=== PATIENT | female | born 1985 | race Caucasian/White ===

== ENCOUNTER → 2020-06-28 | Outpatient (CLI) | payer BC, OTHER ==
[~2020-06-28] MED LIST: COLACE 100MG C100 MG PO
[2020-06-28 13:48] LABS: HEMOGLOBIN 8.1 gm/dl (12.3-15.3)
== END ==
LOC: LAB 12:30
PROVIDERS: Obstetrics & Gynecology
DX: O99.012 Anemia complicating pregnancy, second trimester (principal)
CPT/HCPCS: 36415; 85014; 85018; 86850; 86900; 86901; 86920; P9016

== ENCOUNTER → 2020-06-29 | Outpatient (CLI) | payer BC, OTHER | LOC: OPSV 08:00 | DX: O99.012 Anemia complicating pregnancy, second trimester (principal) | CPT/HCPCS: 36430; P9016 ==

== ENCOUNTER → 2020-07-03 | Outpatient (CLI) | payer BC, OTHER | LOC: OPSV 11:00 | DX: O99.012 Anemia complicating pregnancy, second trimester (principal); Z3A.00 Weeks of gestation of pregnancy not specified | CPT/HCPCS: 96365; J1756 ==

== ENCOUNTER → 2020-07-11 | Outpatient (CLI) | payer BC, OTHER ==
[~2020-07-11] VITALS: Ht 157.5 cm; Wt 64.9 kg
== END ==
LOC: OPSV 09:45
DX: O99.012 Anemia complicating pregnancy, second trimester (principal); Z3A.00 Weeks of gestation of pregnancy not specified
CPT/HCPCS: 96365; J1756

== ENCOUNTER → 2020-07-26 | Outpatient (CLI) | payer BC, OTHER ==
[~2020-07-26] VITALS: Ht 157.5 cm; Wt 64.9 kg
== END ==
LOC: OPSV 07-18 10:00
DX: O99.012 Anemia complicating pregnancy, second trimester (principal); Z3A.01 Less than 8 weeks gestation of pregnancy
CPT/HCPCS: 96365; J1756

== ENCOUNTER 2020-09-30 10:28 | Outpatient (CLI) | payer BC, OTHER ==
[2020-09-30 13:29] LABS: HEMOGLOBIN 9.9 gm/dl (12.3-15.3); RED BLOOD COUNT 3.68 M/UL (4.00-5.10); WHITE BLOOD COUNT 6.9 K/UL (4.5-11.0)
== END 2020-09-30 14:54 | disposition home or self-care (01) ==
LOC: GENOP 10:28
PROVIDERS: Obstetrics & Gynecology
DX: O47.1 False labor at or after 37 completed weeks of gestation (principal); O99.013 Anemia complicating pregnancy, third trimester; D64.9 Anemia, unspecified; O99.353 Diseases of the nervous system complicating pregnancy, third trimester; G43.809 Other migraine, not intractable, without status migrainosus; Z88.8 Allergy status to other drugs, medicaments and biological substances; Z79.899 Other long term (current) drug therapy; Z20.822 Contact with and (suspected) exposure to COVID-19; Z3A.37 37 weeks gestation of pregnancy
CPT/HCPCS: 36415; 81001; 82962; 85025; G0463; U0002

== ENCOUNTER 2020-10-02 08:09 | Inpatient (IN) | payer BC, OTHER ==
[~2020-10-02] VITALS: Ht 157.5 cm; Wt 64.4 kg
[2020-10-02] MEDS ORDERED: PRENATABS FA T1 EACH PO (09:55)
[2020-10-02] MEDS ORDERED: OMEPRAZOLE20 MG PO (09:55)
[2020-10-02] MEDS ORDERED: IBUPROFEN600 MG PO (10:15)
[2020-10-02] MEDS ORDERED: HYDROCODON-ACE1 EAC6 PO (10:15)
[2020-10-02] MEDS ORDERED: COLACE 100MG C100 MG PO (10:15)
[2020-10-03 07:42] LABS: HEMOGLOBIN 8.9 gm/dl (12.3-15.3)
== END 2020-10-03 16:00 | disposition home or self-care (01) | DRG 788 ==
LOC: OB 08:09
PROVIDERS: ADMIT Obstetrics & Gynecology
PROC: 4A1HXCZ Monitoring of Products of Conception, Cardiac Rate, External Approach (ICD-10-PCS; 2020-10-02)
PROC: 10D00Z1 Extraction of Products of Conception, Low, Open Approach (ICD-10-PCS; principal; 2020-10-02 09:15)
DX: O99.354 Diseases of the nervous system complicating childbirth (principal); G43.409 Hemiplegic migraine, not intractable, without status migrainosus; Z3A.36 36 weeks gestation of pregnancy; Z37.0 Single live birth; Z20.822 Contact with and (suspected) exposure to COVID-19; Z90.49 Acquired absence of other specified parts of digestive tract
CPT/HCPCS: 36415; 81001; 82800; 82962; 85014; 85018; 85025; 86900; 86901; C9113; G0463; J0690; J1170; J2250; J2274; J2405; J2550; J2590; J2704; J2765; J3010; J7120; U0002